=== PATIENT | male | born 1975 | race Caucasian/White ===

== ENCOUNTER 2019-10-30 15:12 | Emergency (ER) | payer BC ==
--- NOTE | 2019-10-30 15:55 | EDM.PDOC ---
ED HPI GENERAL MEDICAL PROBLEM - General Chief Complaint: Trauma Stated Complaint: Trauma Time Seen by Provider: 10/30/19 15:13 Source of Information: Reports: Patient History Limitations: Reports: No Limitations - History of Present Illness INITIAL COMMENTS - FREE TEXT/NARRATIVE: Pt run over by a cow Complains of pain in ribs and right hand No LOC No other complaints - Related Data Allergies Allergy/AdvReac Type Severity Reaction Status Date / Time No Known Allergies Allergy Verified 10/30/19 15:13 Home Meds: Home Meds PARoxetine HCL [Paroxetine HCl] 20 mg PO DAILY 10/30/19 [History] Review of Systems - Review of Systems Review Of Systems: See Below Respiratory: Reports: No Symptoms Cardiovascular: Reports: No Symptoms GI/Abdominal: Reports: No Symptoms Musculoskeletal: Reports: Other (right hand pain) ED EXAM, GENERAL - Physical Exam Exam: See Below General Appearance: Alert, WD/WN, Mild Distress Nose: Normal Inspection Throat/Mouth: Normal Inspection Head: Atraumatic Respiratory/Chest: Lungs Clear Cardiovascular: Regular Rate, Rhythm GI/Abdominal: Non-Tender Extremities: Other (right hand with swelling and ecchymosis Mildly tender with movement) Course - Orders/Labs/Meds Orders: Active Orders 24 hr Category Date Time Status Chest 2V [CR] Stat Exams 10/30/19 15:14 Taken Hand Comp Min 3V Rt [CR] Stat Exams 10/30/19 15:14 Taken CBC WITH AUTO DIFF [HEME] Stat Lab 10/30/19 15:15 Ordered - Re-Assessments/Exams Free Text/Narrative Re-Assessment/Exam: 10/30/19 15:52 See xray report 4th metacarpal fracture Velcro splint placed per nurse Departure - Departure Time of Disposition: 16:00 Disposition: Home, Self-Care 01 Clinical Impression: Metacarpal bone fracture Qualifiers: Encounter type: initial encounter Metacarpal bone: fourth Fracture type: closed Metacarpal location: shaft Fracture alignment: displaced Laterality: right Qualified Code(s): S62.324A - Displaced fracture of shaft of fourth metacarpal bone, right hand, initial encounter for closed fracture Rib contusion Qualifiers: Encounter type: initial encounter Laterality: unspecified laterality Qualified Code(s): S20.219A - Contusion of unspecified front wall of thorax, initial encounter - Discharge Information *PRESCRIPTION DRUG MONITORING PROGRAM REVIEWED*: Not Applicable *COPY OF PRESCRIPTION DRUG MONITORING REPORT IN PATIENT DELORIS: Not Applicable Instructions: Contusion, [id number], Metacarpal Fracture, [id number], Cast or Splint Care, Adult, [id number] Referrals: Elyse Cummings [employer] [Primary Care Provider] - Additional Instructions: Ice as needed Follow up in clinic for ortho evaluation Keep elevated Wear splint - My Orders Last 24 Hours: My Active Orders 10/30/19 15:14 Chest 2V [CR] Stat Hand Comp Min 3V Rt [CR] Stat 10/30/19 15:15 CBC WITH AUTO DIFF [HEME] Stat - Assessment/Plan Last 24 Hours: My Active Orders 10/30/19 15:14 Chest 2V [CR] Stat Hand Comp Min 3V Rt [CR] Stat 10/30/19 15:15 CBC WITH AUTO DIFF [HEME] Stat
== END 2019-10-30 16:20 | disposition home or self-care (01) ==
LOC: LL.ED 15:12
DX: S62.324A Displaced fracture of shaft of fourth metacarpal bone, right hand, initial encounter for closed fracture (principal); S20.212A Contusion of left front wall of thorax, initial encounter; Z79.899 Other long term (current) drug therapy; W19.XXXA Unspecified fall, initial encounter; W55.22XA Struck by cow, initial encounter
CPT/HCPCS: 71046; 73130-RT; 99283-25